=== PATIENT | female | born 1940 | race African-American/Black ===

== ENCOUNTER 2017-11-08 14:47 | Emergency (ER) | payer OTHER ==
[~2017-11-08] VITALS: Ht 170.2 cm; Wt 109.8 kg
--- NOTE | ~2017-11-08 | EKG ---
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 : 1940 Requested By: Maryann Jiménez Order Number: [id number] MD: Ruy Mckinney Measurements Intervals [place] Rate: 97 P: 43 [place]: 155 QRS: -19 QRSD: 86 T: 25 QT: 381 QTc: 484 Interpretive Statements Sinus tachycardia Atrial premature complexes Probable left atrial enlargement Borderline left axis deviation Compared to ECG 02/17/2011 19:47:12 Atrial premature complex(es) now present Electronically Signed On 11-09-2017 7:46:10 CDT by Ruy Mckinney [email or web address] <ELECTRONICALLY SIGNED> By: Ruy Mckinney MD, [facility] 11/09/17 0746 1616 1616 Ruy Mckinney MD, [facility] /EPI
[~2017-11-08 14:47] MED LIST: ATIVAN1 MG PO; BACTRIM DS TAB1 EACH PO; CIPRO250 M1 PO; CLARINEX-D 121 EACH PO; CLARITIN10 MG PO; HYDROCHLOROTH12.5 M2 PO; HYDROCODONE-AP1 EAC6 PO; LEVAQUIN 500 M500 MG PO; NAPROSYN500 MG PO; NORCO 5-325 TA1 EACH PO; PARAFON FORTE500 M2 PO; PROAIR HFA8.5 GM INH; ROBITUSSIN ALL118 ML PO; SYMBICORT160 MCG/4. INH; TEMAZEPAM30 MG PO; TRAMADOL 50 MG50 MG PO; TRAVATAN 0.004%5 ML OP; VICODIN 5-5001 EACH PO; XALATAN2.5 ML OPHTHALMIC
[2017-11-08] MEDS ORDERED: MOBIC15 MG PO (15:47)
[2017-11-08] MEDS ORDERED: ATIVAN1 MG PO (15:48)
[2017-11-08] MEDS ORDERED: FLEXERIL PO (15:49)
[2017-11-08 16:38] LABS: HEMATOCRIT 42.6 % (37.0-47.0); MCH 29.1 pg (26.0-34.0); MCHC 32.8 g/dL (28.0-37.0); MCV 88.6 fL (80.0-100.0); PLATELET COUNT 266 thou/uL (150-400); RBC 4.81 mil/uL (4.20-5.00); RDW 15.7 % (10.5-14.5); WBC 5.3 thou/uL (4.0-11.0)
[2017-11-08 16:54] LABS: ANION GAP 8 mmol/L (7-16); BUN 12 mg/dL (7-18); CALCIUM 9.5 mg/dL (8.5-10.1); CHLORIDE 103 mmol/L (98-107); CO2 29 mmol/L (21-32); CREATININE 1.4 mg/dL (0.6-1.0); GLUCOSE 107 mg/dL (74-106); POTASSIUM 3.8 mmol/L (3.5-5.1); SODIUM 140 mmol/L (136-145)
[2017-11-08 17:01] LABS: ALBUMIN 3.4 g/dL (3.4-5.0); SGOT 21 U/L (15-37); SGPT 20 U/L (30-65); TOTAL BILIRUBIN 0.4 mg/dL (<0.1-1.0); TOTAL PROTEIN 7.5 g/dL (6.4-8.2); TROPONIN-I < 0.04 ng/mL (<0.06)
[2017-11-08 17:04] LABS: ABSOLUTE NEUTROPHILS 2.7 thou/uL (1.4-8.2); ATYPICAL LYMPHS 1 %
[2017-11-08 17:05] LABS: ANISOCYTOSIS 1+; POLYCHROMASIA OCCASIONAL
[2017-11-08] MEDS ORDERED: AMOXICILLIN 50500 MG PO (17:37)
[2017-11-08] MEDS ORDERED: PROMETHAZINE/C118 ML PO (17:37)
[2017-11-08] MEDS ORDERED: HYDROCODONE-AP1 EAC6 PO (17:48)
[2017-11-08 18:00] VITALS: BP 109/61
== END 2017-11-08 18:01 | disposition home or self-care (01) ==
LOC: ER 14:47
PROVIDERS: Physician Assistant
DX: H66.93 Otitis media, unspecified, bilateral (principal); J40 Bronchitis, not specified as acute or chronic; R91.8 Other nonspecific abnormal finding of lung field; I10 Essential (primary) hypertension; Z88.1 Allergy status to other antibiotic agents

== ENCOUNTER 2017-12-21 20:52 | Inpatient (IN) | payer OTHER ==
[~2017-12-21] VITALS: Ht 170.2 cm; Wt 108.0 kg
--- NOTE | ~2017-12-21 | EKG ---
[place] [address] [employer] [facility] 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 : 1940 Requested By: Noris Woodall Order Number: [id number] MD: Ruy Mckinney Measurements Intervals [place] Rate: 96 P: 57 [place]: 163 QRS: -22 QRSD: 83 T: 33 QT: 352 QTc: 445 Interpretive Statements Sinus rhythm Atrial premature complex Probable left atrial enlargement Borderline left axis deviation Compared to ECG 11/08/2017 16:16:28 no significant change was found Electronically Signed On 12-22-2017 7:31:12 CDT by Ruy Mckinney [email or web address] <ELECTRONICALLY SIGNED> By: Ruy Mckinney MD, [facility] 12/22/1731 21 21 Ruy Mckinney MD, [facility] /EPI
--- NOTE | ~2017-12-21 | HC ---
[facility] [place] [address] CONSULTATION Name: DAYSI SANTIAGO Room #: 364-P [facility] IN M.R.#: [id number] Admission: 12/21/17 Attend Phys: Corby Knox MD Discharge: 12/23/17 Date of : 38 Report #: [id number] THIS REPORT FOR: //name// CC: Luci Xavier DATE OF SERVICE: 12/22/2017 HISTORY OF PRESENT ILLNESS: The patient is a 69-year-old -B[place]i female who was admitted complaining of left hand and arm pain and numbness. She was noted to have left hand paresthesias. She has history of hypertension and was exogenous obesity. Neurology evaluated her and there was a question as to whether she had some weakness of the left side of the face. Left upper extremity revealed a contracture of the left little finger, but Neurology otherwise, thought that the patient's sensation and reflexes appeared to be present. MRI was negative of the brain. CT of the head was negative. MRI has been done of the thoracic spine, which showed moderate central canal stenosis at T5-T6, T7-T8 as well as severe right neural foraminal narrowing at T5-T6. We are seeing the patient in rehabilitation medicine consultation. PAST MEDICAL HISTORY: Includes asthma, lung cancer, hypertension, glaucoma, DJD of the right hip. MEDICATIONS: Please see the full medication listing. ALLERGIES: CIPROFLOXACIN. HABITS: No history of tobacco or alcohol abuse. SOCIAL HISTORY: Lives in a house with her . There are 8 steps to get in. Premorbid cane ambulator. The patient is retired. is also retired and could be of some assistance if need be. REVIEW OF SYSTEMS: She notes the degenerative arthritis of her right hip. Notes some frustration with her left hand with decreased coordination. No chest pain, shortness of breath, abdominal discomfort, or lower extremity complaints otherwise. PHYSICAL EXAMINATION: GENERAL: A 77-year-old obese -Bahraini female, in no obvious distress. VITAL SIGNS: Last recorded temperature 98.6, pulse 104, respirations 17, and blood pressure 146/72. The patient is alert. HEENT: Appeared to be benign. NEUROLOGIC: Cranial nerves are grossly intact. Facies appeared to be symmetric. Functional range of motion of the right upper extremity without [facility] [address] [place] [address] CONSULTATION Name: DAYSI SANTIAGO Room #: 364-P [facility] IN .R.#: [id number] Admission: 12/21/17 Attend Phys: Corby Knox MD Discharge: 12/23/17 Date of : 39 Report #: [id number] obvious focal weakness. Facies appeared symmetric. Left upper extremity, she does have a contracture of the left fifth digit. She was able to extend the other digits, however. Intrinsic strength appeared to be probably a 4 to 4-/5. She did reasonably well with [id number]. Left upper extremity strength otherwise is a grade 4+/5. Lower extremities: There is no focal calf swelling. Strength is at least a grade 4-/5. Tone was intact. ASSESSMENT: A 77-year-old female with the following problems: 1. Left hand paresthesias, question of left facial weakness. MRI of the brain was negative. Neurology is involved. 2. Right hip degenerative arthritis. 3. Moderate thoracic T5-T6 and T6-T7 central canal stenosis as well as severe right neural foraminal narrowing at T5-T6. 4. Asthma. 5. Lung cancer. 6. Hypertension. 7. Glaucoma. 8. Exogenous obesity. PLAN: We will add physical therapy and occupational therapy to see how she does from a functional perspective. We would hope that she will be able to return directly back home as she further medically stabilizes, but we will need to see how she does from a functional perspective as well. We will be glad to follow along with you regarding rehab therapy needs. <ELECTRONICALLY SIGNED> By: Brent Burris MD 12/28/17 1528 1328 1709 Brent Burris MD /nt
--- NOTE | ~2017-12-21 | HC ---
[facility] [place] [address] CONSULTATION Name: DAYSI SANTIAGO Room #: 364-P ADM IN M.R.#: [id number] Admission: 12/21/17 Attend Phys: Corby Knox MD Discharge: Date of : 39 Report #: [id number] THIS REPORT FOR: //name// CC: Luci Xavier DATE OF SERVICE: 12/22/2017 HISTORY OF PRESENT ILLNESS: This is a 77-year-old female patient who was evaluated by me for the possibility of stroke. The patient gives a history that she has some baseline problem with the left upper extremity. It is mainly the contraction of her left little finger. It is going on for 40 years. She had more numbness in the left arm and there was some weakness. Onset of the symptoms is not clear, but it is going on for at least several days. Pain is also present in the left side of the chest and the left upper extremity. She has no involvement of the left side of the face. Symptoms are severe. She also has some associated spasms there. REVIEW OF SYSTEMS: Indicate that she was diagnosed with the lung cancer, but that has been under remission. She has a history of glaucoma and hypertension. She also had some asthma but does not have any current problem with it. She denies any prior history of stroke or any significant cardiac problem. She has no associated visual, ENT, respiratory, GI, , constitutional, dermatological, hematological, psychiatric, allergic, throat symptom associated with present symptomatology. PAST MEDICAL HISTORY: Positive for contracture of the left little finger. FAMILY HISTORY: Noncontributory, especially she does not have any early age stroke. SOCIAL HISTORY: She used to smoke but stopped smoking long time ago and she does not drink any alcohol on a regular basis. PHYSICAL EXAMINATION: NEUROLOGICAL: Indicate that she is alert, responsive, able to follow simple and complex command. Her speech, concentration, fund of knowledge and memory is at her baseline. Cranial nerve examination 2 through 12 indicate a question of weakness on the left side of the face. She does appear to be weak on the left upper extremity and she does appear to have a contracture in the left little finger but her sensation and reflexes appeared to be present. Tone is symmetrical. There is no cerebellar sign. I could not look at the fundus because she could not cooperate. GENERAL: She is morbidly obese individual who does not have any dysmorphic features of eyes, ears and face. [facility] [address] [place] [address] CONSULTATION Name: DAYSI SANTIAGO Room #: 364-P [facility] IN .R.#: [id number] Admission: 12/21/17 Attend Phys: Corby Knox MD Discharge: Date of : 39 Report #: [id number] HEENT: Her vision and hearing looks adequate. NECK: She has no thyroid mass. EXTREMITIES: Pulses are somewhat difficult to feel, but she has no edema, cyanosis or jaundice. CARDIAC: Examinations appear unremarkable. LUNGS: No respiratory difficulty was noticed and there is not much rhonchi on either side. VITAL SIGNS: Blood pressure is 130/72, respirations 18, pulse is 89 and temperature is 98.4. LABORATORY DATA: Her sodium is normal. Her white count is normal. RADIOLOGICAL DATA: Her CT scan of the head does not show much abnormality. IMPRESSION: 1. It is not clear if her symptoms in the left upper extremity is coming from lower motor neuron lesions and the upper motor neuron lesion. She may have a left facial palsy and if that is the case, that will make it upper motor neuron as more likely. She basically needs workup to evaluate that further starting with an MRI. She tells me there is no contraindication for MRI. We will go ahead and schedule an MRI in this patient and the further workup and management will depend upon that. RECOMMENDATIONS: 1. MRI of the brain. 2. MRI of the thoracic spine. 3. Echocardiogram. 4. Any systemic workup including cardiopulmonary especially because of her prior lung history, I will defer to you. Thank you very much for this referral and if you have any question, please feel free to contact me. By: [id number] Miguelito Graham MD /missy
--- NOTE | ~2017-12-21 | 2DMMODE ---
[facility] [address] [place] [address] 2 D/M-MODE ECHOCARDIOGRAM Name: DAYSI SANTIAGO Room #: 364-P ADM IN M.R.#: [id number] Admission: 12/21/17 Attend Phys: Corby Knox MD Discharge: Date of : 38 Date of Service: 12/23/17 1549 Report #: [id number] THIS REPORT FOR: //name// APPROVED REPORT Study performed: 12/23/2017 15:16:08 EXAM: Comprehensive 2D, Doppler, and color-flow Echocardiogram Patient Location: Echo lab Room #: 364 Status: routine BSA: 2.18 HR: 89 bpm BP: 146/114 mmHg Other Information Study Quality: Adequate Indications Hypertension/HDD 2D Dimensions RVDd: 28.57 mm LVEF(%): 62.20 (>50%) IVSd: 11.51 (7-11mm) LVOT Diam: 21.04 (18-24mm) LVDd: 42.02 mm PWd: 11.72 (7-11mm) Ascending Ao: 30.84 (22-36mm) LVDs: 28.07 (25-40mm) Aortic Root: 28.08 mm IVC: 16.00 mm Velasco's LVEF: 62.20 % Volumes Left Atrial Volume (Systole) Single Plane 4CH: 49.37 mL Single Plane 2CH: 41.39 mL LA ESV Index: 23.00 mL/m2 Aortic Valve AoV Peak Matt.: 1.82 m/s AO Peak Gr.: 13.21 mmHg LVOT Max P.10 mmHg LVOT Max V: 1.24 m/s MARS Vmax: 2.36 cm2 Mitral Valve E/A Ratio: 0.8 MV Decel. Time: 238.49 ms MV E Max Matt.: 0.88 m/s [facility] [place] [address] 2 D/M-MODE ECHOCARDIOGRAM Name: DAYSI SANTIAGO Room #: 364-P [facility] IN ..#: [id number] Admission: 12/21/17 Attend Phys: Corby Knox MD Discharge: Date of : 38 Date of Service: 12/23/17 1549 Report #: [id number] A Matt.: 1.09 m/s MV PHT: 69.16 ms IVRT: 106.11 ms Pulmonary Valve PV Peak Matt.: 1.20 m/s PV Peak Gr.: 5.74 mmHg Pulmonary Vein P Vein S: 0.43 m/s P Vein A: 0.24 m/s P Vein D: 0.32 m/s P Vein A Dur.: 129.2 msec P Vein S/D Ratio: 1.34 Left Ventricle The left ventricle is normal size. There is normal LV segmental wall motion. Mild concentric left ventricular hypertrophy. Left ventricular systolic function is normal. The left ventricular ejection fraction is within the normal range. LVEF is 60-65%. Grade I - abnormal relaxation pattern. Right Ventricle The right ventricle is normal size. The right ventricular systolic function is normal. Atria The left atrium size is normal. The right atrium size is normal. Aortic Valve The aortic valve is normal in structure. Aortic valve is calcified. No aortic regurgitation is present. There is no aortic valvular stenosis. Mitral Valve The mitral valve is normal in structure. Trace to mild mitral regurgitation. No evidence of mitral valve stenosis. Tricuspid Valve The tricuspid valve is normal in structure. There is no tricuspid valve regurgitation noted. Pulmonic Valve The pulmonary valve is normal in structure. There is no pulmonic valvular regurgitation. Great Vessels The aortic root is normal in size. IVC is normal in size and [facility] [address] [place] [address] 2 D/M-MODE ECHOCARDIOGRAM Name: DAYSI SANTIAGO Room #: 364-P [facility] IN [facility]#: [id number] Admission: 12/21/17 Attend Phys: Corby Knox MD Discharge: Date of : 38 Date of Service: 12/23/17 1549 Report #: [id number] collapses with >50% inspiration Pericardium There is no pericardial effusion. <Conclusion> The left ventricle is normal size. Mild concentric left ventricular hypertrophy. LVEF is 60-65%. Grade I - abnormal relaxation pattern. The right ventricle is normal size. The left atrium size is normal. The aortic valve is normal in structure. Aortic valve is calcified. There is no aortic valvular stenosis. Trace to mild mitral regurgitation. There is no tricuspid valve regurgitation noted. The aortic root is normal in size. There is no pericardial effusion. <ELECTRONICALLY SIGNED> By: Tanvir Garcia MD, FACC 12/23/17 1549 1549 1549 Tanvir Garcia MD, FACC /INF
[~2017-12-21 20:52] MED LIST changes: +AMOXICILLIN 50500 MG PO; +FLEXERIL PO; +MOBIC15 MG PO; +PROMETHAZINE/C118 ML PO
[2017-12-21 21:07] VITALS: BP 135/86
[2017-12-21] MEDS ORDERED: ULTRAM 50MG TAB50 MG PO (21:15)
[2017-12-21 21:17] LABS: ABSOLUTE NEUTROPHILS 4.3 thou/uL (1.4-8.2); BASOPHILS 0.5 % (0.0-2.0); HEMATOCRIT 41.8 % (37.0-47.0); HEMOGLOBIN 13.7 gm/dL (12.0-15.0); LYMPHOCYTES 26.7 % (24.0-44.0); MCHC 32.7 g/dL (28.0-37.0); MCV 88.6 fL (80.0-100.0); MONOCYTES 11.4 % (1.0-8.0); PLATELET COUNT 300 thou/uL (150-400); POLYS 58.4 % (36.0-66.0); RBC 4.72 mil/uL (4.20-5.00); RDW 15.1 % (10.5-14.5); WBC 7.4 thou/uL (4.0-11.0)
[2017-12-21 21:25] LABS: CALCIUM 9.3 mg/dL (8.5-10.1); CREATININE 1.5 mg/dL (0.6-1.0); POTASSIUM 3.9 mmol/L (3.5-5.1)
[2017-12-21] MEDS ORDERED: XALATAN2.5 ML OPHTHALMIC (22:25)
[2017-12-21 22:41] VITALS: BP 137/85
[2017-12-21 22:43] VITALS: BP 137/85
[2017-12-21 22:50] VITALS: BP 128/63
[2017-12-22 05:43] VITALS: BP 117/51
[2017-12-22 05:50] LABS: CALCIUM 8.6 mg/dL (8.5-10.1); CREATININE 1.2 mg/dL (0.6-1.0); POTASSIUM 3.8 mmol/L (3.5-5.1)
[2017-12-22 06:27] LABS: TSH 0.823 uIU/mL (0.358-3.740)
[2017-12-22 07:29] LABS: URINE BILIRUBIN NEGATIVE (Negative); URINE BLOOD NEGATIVE (Negative); URINE CLARITY CLEAR; URINE COLOR YELLOW; URINE GLUCOSE-RANDOM* NEGATIVE (Negative); URINE KETONES NEGATIVE (Negative); URINE LEUKOCYTES-REFLEX NEGATIVE (Negative); URINE NITRITE-REFLEX NEGATIVE (Negative); URINE PROTEIN (DIPSTICK) NEGATIVE (Negative); URINE SPECIFIC GRAVITY >= 1.030 (1.005-1.035); URINE UROBILINOGEN 0.2 E.U./dl (0.2-1.0)
[2017-12-22 07:53] VITALS: BP 135/72
[2017-12-22 11:33] VITALS: BP 146/72
[2017-12-22 15:07] VITALS: BP 184/85
[2017-12-22 20:11] VITALS: BP 120/68
[2017-12-23 04:07] VITALS: BP 135/63
[2017-12-23 05:46] LABS: HEMATOCRIT 37.6 % (37.0-47.0); HEMOGLOBIN 12.4 gm/dL (12.0-15.0); MCH 29.2 pg (26.0-34.0); MCV 88.5 fL (80.0-100.0); RBC 4.25 mil/uL (4.20-5.00); RDW 14.9 % (10.5-14.5); WBC 5.7 thou/uL (4.0-11.0)
[2017-12-23 05:55] LABS: CALCIUM 8.8 mg/dL (8.5-10.1); CREATININE 1.1 mg/dL (0.6-1.0)
[2017-12-23 07:52] VITALS: BP 140/65
[2017-12-23 11:43] VITALS: BP 146/114
[2017-12-23] MEDS ORDERED: ASPIR 8181 MG PO (17:19)
[2017-12-23 17:29] VITALS: BP 146/114
== END 2017-12-23 19:00 | disposition home or self-care (01) | DRG 564 ==
LOC: ER 20:52 → 3W 22:13 → EROBS 22:13 → 3W 22:44 → ENTRNSPT 12-23 18:28 → 3W 12-23 19:00
PROVIDERS: Emergency Medicine; Hospitalist; Nurse Practitioner Family
DX: M24.542 Contracture, left hand (principal); N17.0 Acute kidney failure with tubular necrosis; J45.909 Unspecified asthma, uncomplicated; H40.9 Unspecified glaucoma; I10 Essential (primary) hypertension; M16.11 Unilateral primary osteoarthritis, right hip; M48.04 Spinal stenosis, thoracic region; E66.01 Morbid (severe) obesity due to excess calories; M62.84 Sarcopenia; E55.9 Vitamin D deficiency, unspecified; K59.00 Constipation, unspecified; Z85.118 Personal history of other malignant neoplasm of bronchus and lung; Z88.1 Allergy status to other antibiotic agents; Z68.37 Body mass index [BMI] 37.0-37.9, adult; Z79.82 Long term (current) use of aspirin; Z79.899 Other long term (current) drug therapy
CPT/HCPCS: 10879

== ENCOUNTER 2018-09-03 13:59 | Emergency (ER) | payer OTHER ==
[~2018-09-03] VITALS: Ht 165.1 cm; Wt 108.4 kg
[~2018-09-03 13:59] MED LIST changes: +ASPIR 8181 MG PO; +ULTRAM 50MG TAB50 MG PO
[2018-09-03] MEDS ORDERED: ZANAFLEX4 MG PO (14:16)
[2018-09-03 16:01] LABS: ABSOLUTE NEUTROPHILS 4.2 thou/uL (1.4-8.2); BASOPHILS 0.5 % (0.0-2.0); HEMATOCRIT 38.5 % (37.0-47.0); HEMOGLOBIN 12.4 gm/dL (12.0-15.0); LYMPHOCYTES 24.4 % (24.0-44.0); MCH 28.5 pg (26.0-34.0); MCHC 32.2 g/dL (28.0-37.0); MCV 88.4 fL (80.0-100.0); MONOCYTES 8.9 % (1.0-8.0); PLATELET COUNT 317 thou/uL (150-400); POLYS 59.2 % (36.0-66.0); RBC 4.35 mil/uL (4.20-5.00); WBC 7.1 thou/uL (4.0-11.0)
[2018-09-03 16:10] LABS: ANION GAP 9 mmol/L (7-16); BUN 11 mg/dL (7-18); CALCIUM 9.4 mg/dL (8.5-10.1); CHLORIDE 103 mmol/L (98-107); CO2 29 mmol/L (21-32); CREATININE 0.9 mg/dL (0.6-1.0); GLUCOSE 92 mg/dL (74-106); POTASSIUM 4.1 mmol/L (3.5-5.1); SODIUM 141 mmol/L (136-145)
[2018-09-03 16:18] LABS: TROPONIN-I <0.06 ng/mL (<0.06)
[2018-09-03] MEDS ORDERED: NORCO 5-325 TA1 EACH PO (16:25)
[2018-09-03] MEDS ORDERED: MOBIC7.5 MG PO (16:25)
[2018-09-03 16:36] VITALS: BP 149/57
--- NOTE | 2018-09-04 11:48 | EKG ---
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: rosa maria : 1940 Requested By: Pati Ambrosio Order Number: [id number] MD: Ruy Mckinney Measurements Intervals [place] Rate: 76 P: 47 [place]: 185 QRS: -1 QRSD: 92 T: 22 QT: 392 QTc: 441 Interpretive Statements Sinus rhythm Atrial premature complex Compared to ECG 12/21/2017 21:22:25 No significant change was found Electronically Signed On 09-04-2018 11:48:40 CDT by Ruy Mckinney [email or web address] ��������������������������������������������� <ELECTRONICALLY SIGNED> ���������������������������������������� By: Ruy Mckinney MD, [facility] ��������������������������������������������� 09/04/18 1148 1522 21 Ruy Mckinney MD, FACC /EPI
== END 2018-09-03 16:47 | disposition home or self-care (01) ==
LOC: ER 13:59
PROVIDERS: Nurse Practitioner Family
DX: R07.81 Pleurodynia (principal); J45.909 Unspecified asthma, uncomplicated; I10 Essential (primary) hypertension; M19.90 Unspecified osteoarthritis, unspecified site; Z87.440 Personal history of urinary (tract) infections; Z88.1 Allergy status to other antibiotic agents; Z85.118 Personal history of other malignant neoplasm of bronchus and lung

== ENCOUNTER 2019-06-24 13:05 | Emergency (ER) | payer OTHER ==
[~2019-06-24] VITALS: Ht 165.1 cm; Wt 106.1 kg
[~2019-06-24 13:05] MED LIST changes: +MOBIC7.5 MG PO; +ZANAFLEX4 MG PO
[2019-06-24 13:12] VITALS: BP 161/72
[2019-06-24] MEDS ORDERED: ZPAK PO (15:26)
[2019-06-24] MEDS ORDERED: PREDNISONE 20 M20 MG PO (15:26)
[2019-06-24] MEDS ORDERED: PROMETH-CODEIN 65 ML PO (15:26)
== END 2019-06-24 20:42 | disposition home or self-care (01) ==
LOC: ER 13:05
DX: J45.909 Unspecified asthma, uncomplicated (principal); H66.91 Otitis media, unspecified, right ear; M19.90 Unspecified osteoarthritis, unspecified site; Z85.118 Personal history of other malignant neoplasm of bronchus and lung; Z87.440 Personal history of urinary (tract) infections; Z88.1 Allergy status to other antibiotic agents

== ENCOUNTER 2020-09-13 12:48 | Emergency (ER) | payer OTHER ==
[~2020-09-13] VITALS: Ht 165.1 cm; Wt 110.2 kg
[~2020-09-13 12:48] MED LIST changes: +PREDNISONE 20 M20 MG PO; +PROMETH-CODEIN 65 ML PO; +ZPAK PO
[2020-09-13] MEDS ORDERED: GABAPENTIN 100100 MG PO (12:54)
[2020-09-13 13:27] LABS: ABSOLUTE NEUTROPHILS 4.5 thou/uL (1.4-8.2); BASOPHILS 0.7 % (0.0-2.0); HEMATOCRIT 37.4 % (37.0-47.0); LYMPHOCYTES 22.5 % (24.0-44.0); MCHC 32.2 g/dL (28.0-37.0); MONOCYTES 10.8 % (1.0-8.0); PLATELET COUNT 379 thou/uL (150-400); RBC 4.29 mil/uL (4.20-5.00); RDW 17.2 % (10.5-14.5); WBC 7.1 thou/uL (4.0-11.0)
[2020-09-13 15:43] LABS: ALBUMIN 3.3 g/dL (3.4-5.0); ANION GAP 7 mmol/L (7-16); BUN 14 mg/dL (7-18); CALCIUM 9.3 mg/dL (8.5-10.1); CHLORIDE 107 mmol/L (98-107); CO2 28 mmol/L (21-32); GLUCOSE 92 mg/dL (74-106); POTASSIUM 4.5 mmol/L (3.5-5.1); SGOT 19 U/L (15-37); SGPT 18 U/L (14-59); SODIUM 142 mmol/L (136-145); TOTAL BILIRUBIN 0.3 mg/dL (0.2-1.0); TOTAL PROTEIN 7.2 g/dL (6.4-8.2); TROPONIN-I <0.06 ng/mL (<0.06)
[2020-09-13] MEDS ORDERED: ULTRAM 50MG TAB50 MG PO (16:35)
[2020-09-13 16:41] VITALS: BP 180/81
--- NOTE | 2020-09-15 11:03 | EKG ---
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
== END 2020-09-13 16:50 | disposition home or self-care (01) ==
LOC: ER 12:48
PROVIDERS: Nurse Practitioner
DX: R22.43 Localized swelling, mass and lump, lower limb, bilateral (principal); M25.571 Pain in right ankle and joints of right foot; M25.572 Pain in left ankle and joints of left foot; M79.671 Pain in right foot; M79.672 Pain in left foot; J45.909 Unspecified asthma, uncomplicated; I10 Essential (primary) hypertension; Z79.82 Long term (current) use of aspirin; Z79.899 Other long term (current) drug therapy; Z88.1 Allergy status to other antibiotic agents

== ENCOUNTER 2021-01-21 14:40 | Inpatient (IN) | payer OTHER ==
[~2021-01-21] VITALS: Ht 165.1 cm; Wt 105.2 kg
--- NOTE | ~2021-01-21 | EMS ---
[address] [address] EMS Patient Care Report Name: DAYSI SANTIAGO Room #: 462-P [facility] IN M.R.#: [id number] Admission: 01/21/21 Attend Phys: Chay Vizcaino MD Discharge: 01/22/21 Date of : 39 Report #: [id number] THIS REPORT FOR: //name// Report Transmitted: 01/23/2021 11:18 EMS Care Summary [place], [place]/[facility] Incident [id number] @ 01/21/2021 13:30 Incident Location [address] [place] [address] Patient DAYSI SANTIAGO Female, 80 Years 1940 Patient Address [address] [place] [address] Patient History Hypertension (HTN),Colon Cancer,Rheumatoid Arthritis,Glaucoma, Patient Allergies No known allergies, Patient Medications Cyclobenzaprine, Hydrochlorothiazide (Hctz), Chief Complaint NEAR SYNCOPE Disposition Transported No Lights/[place] Dispatch Reason Sick Person Transported To [facility] Narrative DISPATCHED NON EMERGENCY ON A SICK. 80 Y/O FEMALE SITTING IN CHAIR IN KITCHEN APPEARING IN NO IMMEDIATE DISTRESS. GCS 15 AND A/OX4. STATES THAT AROUND 1 PM EVERYTHING STARTED TO GET DARK AND SHE FELT LIKE SHE WOULD PASS OUT AND BROKE INTO COLD SWEATS, ALL OVER NUMBNESS AND MUSCLE CRAMPS WITH PAIN AT 8. DENIES [facility] [address] [place] [address] EMS Patient Care Report Name: DAYSI SANTIAGO Room #: 462-P [facility] IN M.R.#: [id number] Admission: 01/21/21 Attend Phys: Chay Vizcaino MD Discharge: 01/22/21 Date of : 39 Report #: [id number] ANY LOSS OF CONSCIOUSNESS, CHEST PAIN, SOA, NAUSEA, VOMITING. STATES THAT THIS ALL HAPPENED SOON AFTER SHE TOOK HER BLOOD PRESSURE MEDICATION. STATES THAT SHE FELT LIKE SHE COULDN'T CATCH HER BREATH EARLIER BUT DENIES ANY DIFFICULTY BREATHING NOW. PT IS UNSURE IF SHE WANTS TO GO TO THE HOSPITAL BUT CONSENTS FOR V/S'S. DENIES ANY PREVIOUS SIMILIAR EPISODES. V/S'S OBTAINED. EMS ADVISES PT THAT SHE SHOULD BE FURTHER EVALUATED AT HE HOSPITAL BY A DOCTOR. ADVISED OF RISKS. PT CONSENTS FOR FURTHER TX AND TRANSPORTATION. MOVED WITHOUT INCIDENT TO AMBULANCE VIA STAIRCHAIR AND STRETCHER. V/S'S OBTAINED. IV ESTABLISHED. TRANSPORTED TO [facility]. REASSESSED ENROUTE. V/S'S OBTAINED. REMAINS GCS 15 AND A/OX4. CRAMPING AND NUMBNESS REMAIN. REPORT CALLED TO HOSPITAL. MOVED WITHOUT INCIDENT TO ER HOSPITAL BED. PT CARE TRANSFERRED TO ED RN. Initial Vitals @13:45P: 90,R: 16,BP: 100/68,Pain: 8/10,GCS: 15,Glucose: 121,SpO2: 98,Revised Trauma: 12, @13:57P: 90,R: 16,BP: 100/74,Pain: 8/10,GCS: 15,Temp: 97.5F,CO: 1,SpO2: 97,Revised Trauma: 12, @14:23P: 86,R: 16,BP: 111/65,Pain: 8/10,GCS: 15,SpO2: 96,Revised Trauma: 12, Assessments @13:43MENTAL:Person Oriented,Time Oriented,Event Oriented,Place Oriented,SKIN:HEENT:Head/Face: No Abnormalities,Neck/Airway: No Abnormalities,LUNG SOUNDS:General: No Abnormalities,ABDOMEN:General: No Abnormalities,PELVIS//GI:EXTREMITIES:Right Leg: Abnormal Sensation,Capillary Refill: Right Upper: < 2 Sec,Capillary Refill: Left Lower: < 2 Sec,Capillary Refill: Right Lower: < 2 Sec,Capillary Refill: Left Upper: < 2 Sec,Left Leg: Other,Left Leg: Abnormal Sensation,Right Arm: Other,Left Arm: Abnormal Sensation,Right Arm: Abnormal Sensation,Left Arm: Other,PULSE:Radial: 2+ Normal,NEURO:@14:30MENTAL:Time Oriented,Place Oriented,Person Oriented,Event Oriented,SKIN:HEENT:Head/Face: No Abnormalities,Neck/Airway: No Abnormalities,LUNG SOUNDS:ABDOMEN:PELVIS//GI:EXTREMITIES:Right Leg: Abnormal Sensation,Capillary Refill: Left Upper: < 2 Sec,Capillary Refill: Left Lower: < 2 Sec,Capillary Refill: Right Lower: < 2 Sec,Capillary Refill: Right Upper: < 2 Sec,Left Leg: Other,Left Arm: Abnormal Sensation,Left Leg: Abnormal Sensation,Right Arm: Other,Right Arm: Abnormal Sensation,Left Arm: Other,PULSE:Radial: 2+ Normal,NEURO: Impression Syncope / Fainting Procedures @13:43ALS AssessmentResponse: UnchangedSucceeded@13:563-Lead ECGResponse: Unchanged@14:22Saline Lock 10cc (20 ga) Site: Antecubital-LeftResponse: UnchangedSucceeded@14:00StairchairResponse: Unchanged@14:05StretcherResponse: Unchanged [facility] [address] [place] [address] EMS Patient Care Report Name: DAYSI SANTIAGO Room #: 462-P [facility] IN M.R.#: [id number] Admission: 01/21/21 Attend Phys: Chay Vizcaino MD Discharge: 01/22/21 Date of : 38 Report #: [id number] Timeline 13:28,Call Received 13:28,Dispatch Notified 13:30,Dispatched 13:31,En Route 13:41,On Scene 13:43,At Patient 13:43,ALS Assessment,Response: UnchangedSucceeded, 13:45,BP: 100/68 M,PULSE: 90,RR: 16 R,SPO2: 98 Ox,ETCO2: ,B,PAIN: 8,GCS: 15, 13:56,3-Lead ECG,Response: Unchanged 13:57,BP: 100/74 M,PULSE: 90,RR: 16 R,SPO2: 97 Ox,ETCO2: ,BG: ,PAIN: 8,GCS: 15, 14:00,Stairchair,Response: Unchanged 14:05,Stretcher,Response: Unchanged 14:22,Saline Lock 10cc 20 ga Site: Antecubital-Left,Response: UnchangedSucceeded, 14:23,BP: 111/65 M,PULSE: 86,RR: 16 R,SPO2: 96 Ox,ETCO2: ,BG: ,PAIN: 8,GCS: 15, 14:26,Depart Scene 14:36,At Destination 15:01,Call Closed Disclaimer v1.1 Copyright 2020 [employer] This EMS Care Summary contains data elements from the applicable legal record (which may be displayed differently). It is designed to provide pertinent information for the following purposes: continuity of care, clinical quality, and state data reporting. The complete legal record is available to ED staff and administrators of the receiving hospital in ES's Patient Tracker. All data is provided "as is."
--- NOTE | ~2021-01-21 | EMS ---
[address] [address] EMS Patient Care Report Name: DAYSI SANTIAGO Room #: REG ADRIANNE [place]#: [id number] Admission: 01/21/21 Attend Phys: Discharge: Date of : 38 Report #: [id number] THIS REPORT FOR: //name// Report Transmitted: 01/21/2021 15:38 EMS Care Summary [place], [place]/[facility] Incident [id number] @ 01/21/2021 13:30 Incident Location [address] [place] [address] Patient DAYSI SANTIAGO Female, 80 Years 1940 Patient Address [address] [place] [address] Patient History Hypertension (HTN),Colon Cancer,Rheumatoid Arthritis,Glaucoma, Patient Allergies No known allergies, Patient Medications Cyclobenzaprine, Hydrochlorothiazide (Hctz), Chief Complaint NEAR SYNCOPE Disposition Transported No Lights/[place] Dispatch Reason Sick Person Transported To [facility] Narrative DISPATCHED NON EMERGENCY ON A SICK. 80 Y/O FEMALE SITTING IN CHAIR IN KITCHEN APPEARING IN NO IMMEDIATE DISTRESS. GCS 15 AND A/OX4. STATES THAT AROUND 1 PM EVERYTHING STARTED TO GET DARK AND SHE FELT LIKE SHE WOULD PASS OUT AND BROKE INTO COLD SWEATS, ALL OVER NUMBNESS AND MUSCLE CRAMPS WITH PAIN AT 8. DENIES [place] [id number] EMS Patient Care Report Name: DAYSI SANTIAGO Room #: REG [facility].#: [id number] Admission: 01/21/21 Attend Phys: Discharge: Date of : 39 Report #: [id number] ANY LOSS OF CONSCIOUSNESS, CHEST PAIN, SOA, NAUSEA, VOMITING. STATES THAT THIS ALL HAPPENED SOON AFTER SHE TOOK HER BLOOD PRESSURE MEDICATION. STATES THAT SHE FELT LIKE SHE COULDN'T CATCH HER BREATH EARLIER BUT DENIES ANY DIFFICULTY BREATHING NOW. PT IS UNSURE IF SHE WANTS TO GO TO THE HOSPITAL BUT CONSENTS FOR V/S'S. DENIES ANY PREVIOUS SIMILIAR EPISODES. V/S'S OBTAINED. EMS ADVISES PT THAT SHE SHOULD BE FURTHER EVALUATED AT HE HOSPITAL BY A DOCTOR. ADVISED OF RISKS. PT CONSENTS FOR FURTHER TX AND TRANSPORTATION. MOVED WITHOUT INCIDENT TO AMBULANCE VIA STAIRCHAIR AND STRETCHER. V/S'S OBTAINED. IV ESTABLISHED. TRANSPORTED TO [facility]. REASSESSED ENROUTE. V/S'S OBTAINED. REMAINS GCS 15 AND A/OX4. CRAMPING AND NUMBNESS REMAIN. REPORT CALLED TO HOSPITAL. MOVED WITHOUT INCIDENT TO ER HOSPITAL BED. PT CARE TRANSFERRED TO ED RN. Initial Vitals @13:45P: 90,R: 16,BP: 100/68,Pain: 8/10,GCS: 15,Glucose: 121,SpO2: 98,Revised Trauma: 12, @13:57P: 90,R: 16,BP: 100/74,Pain: 8/10,GCS: 15,Temp: 97.5F,CO: 1,SpO2: 97,Revised Trauma: 12, @14:23P: 86,R: 16,BP: 111/65,Pain: 8/10,GCS: 15,SpO2: 96,Revised Trauma: 12, Assessments @13:43MENTAL:Person Oriented,Time Oriented,Event Oriented,Place Oriented,SKIN:HEENT:Head/Face: No Abnormalities,Neck/Airway: No Abnormalities,LUNG SOUNDS:General: No Abnormalities,ABDOMEN:General: No Abnormalities,PELVIS//GI:EXTREMITIES:Left Arm: Other,Right Arm: Abnormal Sensation,Left Arm: Abnormal Sensation,Right Arm: Other,Left Leg: Abnormal Sensation,Left Leg: Other,Capillary Refill: Left Upper: < 2 Sec,Capillary Refill: Right Lower: < 2 Sec,Capillary Refill: Left Lower: < 2 Sec,Capillary Refill: Right Upper: < 2 Sec,Right Leg: Abnormal Sensation,PULSE:Radial: 2+ Normal,NEURO:@14:30MENTAL:Event Oriented,Person Oriented,Place Oriented,Time Oriented,SKIN:HEENT:Head/Face: No Abnormalities,Neck/Airway: No Abnormalities,LUNG SOUNDS:ABDOMEN:PELVIS//GI:EXTREMITIES:Left Arm: Other,Right Arm: Abnormal Sensation,Right Arm: Other,Left Leg: Abnormal Sensation,Left Arm: Abnormal Sensation,Left Leg: Other,Capillary Refill: Right Upper: < 2 Sec,Capillary Refill: Right Lower: < 2 Sec,Capillary Refill: Left Lower: < 2 Sec,Capillary Refill: Left Upper: < 2 Sec,Right Leg: Abnormal Sensation,PULSE:Radial: 2+ Normal,NEURO: Impression Syncope / Fainting Procedures @13:43ALS AssessmentResponse: UnchangedSucceeded@13:563-Lead ECGResponse: Unchanged@14:22Saline Lock 10cc (20 ga) Site: Antecubital-LeftResponse: UnchangedSucceeded@14:00StairchairResponse: Unchanged@14:05StretcherResponse: Unchanged [facility] [address] [place] [address] EMS Patient Care Report Name: DAYSI SANTIAGO Room #: REG ADRIANNE [place]#: [id number] Admission: 01/21/21 Attend Phys: Discharge: Date of : 39 Report #: [id number] Timeline 13:28,Call Received 13:28,Dispatch Notified 13:30,Dispatched 13:31,En Route 13:41,On Scene 13:43,At Patient 13:43,ALS Assessment,Response: UnchangedSucceeded, 13:45,BP: 100/68 M,PULSE: 90,RR: 16 R,SPO2: 98 Ox,ETCO2: ,B,PAIN: 8,GCS: 15, 13:56,3-Lead ECG,Response: Unchanged 13:57,BP: 100/74 M,PULSE: 90,RR: 16 R,SPO2: 97 Ox,ETCO2: ,BG: ,PAIN: 8,GCS: 15, 14:00,Stairchair,Response: Unchanged 14:05,Stretcher,Response: Unchanged 14:22,Saline Lock 10cc 20 ga Site: Antecubital-Left,Response: UnchangedSucceeded, 14:23,BP: 111/65 M,PULSE: 86,RR: 16 R,SPO2: 96 Ox,ETCO2: ,BG: ,PAIN: 8,GCS: 15, 14:26,Depart Scene 14:36,At Destination 15:01,Call Closed Disclaimer v1.1 Copyright 2020 [employer] This EMS Care Summary contains data elements from the applicable legal record (which may be displayed differently). It is designed to provide pertinent information for the following purposes: continuity of care, clinical quality, and state data reporting. The complete legal record is available to ED staff and administrators of the receiving hospital in [facility]'s Patient Tracker. All data is provided "as is."
[~2021-01-21 14:40] MED LIST changes: +GABAPENTIN 100100 MG PO
[2021-01-21 14:42] VITALS: BP 123/67
[2021-01-21 15:15] LABS: ABSOLUTE NEUTROPHILS 5.4 thou/uL (1.4-8.2); BASOPHILS 0.6 % (0.0-2.0); HEMATOCRIT 37.6 % (37.0-47.0); HEMOGLOBIN 12.3 gm/dL (12.0-15.0); LYMPHOCYTES 17.3 % (24.0-44.0); MCH 28.3 pg (26.0-34.0); MCHC 32.6 g/dL (28.0-37.0); MCV 86.7 fL (80.0-100.0); MONOCYTES 11.2 % (1.0-8.0); PLATELET COUNT 338 thou/uL (150-400); POLYS 68.9 % (36.0-66.0); RBC 4.33 mil/uL (4.20-5.00); RDW 16.1 % (10.5-14.5); WBC 7.8 thou/uL (4.0-11.0)
--- NOTE | 2021-01-21 15:22 | NUR ---
per Dr Tran. Do not wait for creatine. proceed to CTA. pt has no hx of renal disease. Also requesting to include aortic arch on exams. This info delivered to aeronautical engineering technologist.
[2021-01-21 15:25] LABS: ANION GAP 9 mmol/L (7-16); BUN 17 mg/dL (7-18); CALCIUM 8.8 mg/dL (8.5-10.1); CHLORIDE 104 mmol/L (98-107); CO2 26 mmol/L (21-32); CREATININE 1.4 mg/dL (0.6-1.0); GLUCOSE 103 mg/dL (74-106); POTASSIUM 4.1 mmol/L (3.5-5.1); SODIUM 139 mmol/L (136-145)
[2021-01-21 15:29] LABS: APTT 24.2 Seconds (24.5-32.8); INR 0.96; PROTIME 10.5 Seconds (10.5-12.1)
[2021-01-21 15:35] LABS: ALBUMIN 3.5 g/dL (3.4-5.0); LIPASE 83 U/L (73-393); SGOT 21 U/L (15-37); SGPT 22 U/L (30-65); TOTAL BILIRUBIN 0.4 mg/dL (0.2-1.0); TOTAL PROTEIN 7.7 g/dL (6.4-8.2); TROPONIN-I <0.06 ng/mL (<0.06)
[2021-01-21 16:57] LABS: URINE BILIRUBIN NEGATIVE (Negative); URINE BLOOD NEGATIVE (Negative); URINE CLARITY CLEAR; URINE COLOR YELLOW; URINE GLUCOSE-RANDOM* NEGATIVE (Negative); URINE KETONES NEGATIVE (Negative); URINE LEUKOCYTES-REFLEX NEGATIVE (Negative); URINE NITRITE-REFLEX NEGATIVE (Negative); URINE PROTEIN (DIPSTICK) NEGATIVE (Negative); URINE SPECIFIC GRAVITY <= 1.005 (1.005-1.035); URINE UROBILINOGEN 0.2 E.U./dl (0.2-1.0)
[2021-01-21 17:24] VITALS: BP 97/64
[2021-01-21 17:42] VITALS: BP 107/54
[2021-01-21 17:43] VITALS: BP 107/54
[2021-01-21 18:55] VITALS: BP 133/64
[2021-01-22 05:50] LABS: ABSOLUTE NEUTROPHILS 4.2 thou/uL (1.4-8.2); BASOPHILS 0.4 % (0.0-2.0); EOSINOPHILS 1.5 % (0.0-3.0); HEMOGLOBIN 10.9 gm/dL (12.0-15.0); LYMPHOCYTES 24.4 % (24.0-44.0); MCH 27.9 pg (26.0-34.0); PLATELET COUNT 312 thou/uL (150-400); POLYS 63.7 % (36.0-66.0); RDW 16.3 % (10.5-14.5); WBC 6.6 thou/uL (4.0-11.0)
--- NOTE | 2021-01-22 05:57 | NUR ---
today this pt has been asleep for most of the night while tolerating her fluids well. Her orthostatic VS were normal and she has otherwise been using the BSC for voiding. She is otherwise awaiting for the next plan.
[2021-01-22 05:59] LABS: CALCIUM 8.5 mg/dL (8.5-10.1); CREATININE 1.2 mg/dL (0.6-1.0); MAGNESIUM 2.1 mg/dL (1.8-2.4)
--- NOTE | 2021-01-22 07:47 | EKG ---
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 : 1940 Requested By: Tremayne Tran Order Number: [id number] MD: Lexx Pagan Measurements Intervals [place] Rate: 85 P: 78 MS: 183 QRS: -15 QRSD: 100 T: 17 QT: 394 QTc: 469 Interpretive Statements Sinus rhythm Borderline left axis deviation Artifact in lead(s) I,III,aVR,aVL,aVF,V1,V2 Compared to ECG 09/13/2020 13:49:28 Atrial premature complex(es) no longer present ST (T wave) deviation no longer present Electronically Signed On 01-22-2021 7:47:25 CDT by Lexx Pagan [email or web address] <ELECTRONICALLY SIGNED> By: Lexx Pagan MD, FACC 01/22/21 0747 1454 1454 Lexx Pagan MD, FAC /EPI
[2021-01-22 08:45] VITALS: BP 137/71
--- NOTE | 2021-01-22 10:53 | NUR ---
Pt A/O x 4, up with standby assist sitting in chair. X-ray of R hip shows no metal objects, okay for pt to have head MRI. MRI checklist complete, attempting to get MRI complete before pt D/C home.
--- NOTE | 2021-01-22 12:22 | HC ---
[facility] [place] [address] CONSULTATION Name: DAYSI SANTIAGO Room #: 462-P ADM IN M.R.#: [id number] Admission: 01/21/21 Attend Phys: Chay Vizcaino MD Discharge: Date of : 39 Report #: [id number] THIS REPORT FOR: cc: Luci Lagos MD, Karla L. MD Khosla, Parveen K. MD ~ DATE OF SERVICE: 01/21/2021 HISTORY OF PRESENT ILLNESS: This is an 80-year-old female patient who is a poor historian. Symptoms are unstructured and she jumps from one symptom to another. It becomes very difficult to evaluate her. She says that she is on antihypertensive, but she does not take it regularly. She took antihypertensive, she had some cold sweating and some unusual feeling which involved both her shoulders and somewhere in the neck area and maybe some in the thoracic area. She feels she is weak on the left side, how long it is going on is not clear. She appeared to have Dupuytren's contracture on both hands and keeps showing that to me, but when I ask her, then she says it is going on for some time. She wants those to be addressed here and I asked her to talk to the hospitalist. She does have some history of back pain, flank pain, foot pain, lung swelling. Numerous symptoms she has, it becomes very difficult to evaluate her. REVIEW OF SYSTEMS: Positive for hypertension for which she takes medication, but rarely. She has a history of asthma and apparently a lung carcinoma, glaucoma, degenerative joint disease, bronchitis, urinary tract infection. That was her relevant 14-point review of system. PAST MEDICAL HISTORY: Positive for what looks like contracture on both hands. FAMILY HISTORY: Unremarkable. SOCIAL HISTORY: She does not smoke, but does drink alcohol. PHYSICAL EXAMINATION: The patient's examination indicates that she is alert, responsive. Her speech, concentration, fund of knowledge and memory is at her baseline. Cranial nerve examination appears unremarkable. Hose Finisher is weak because of Dupuytren's contracture. She moves all 4 extremities. It is difficult to tell because of this contracture. She did reasonably well with position sense. Her reflexes does not appear to be hyper, I cannot tell about plantar. Cardiac examination appear unremarkable. No respiratory difficulty was noticed. Blood pressure is 133/64, respirations 18, pulse is 96, temperature is 98.2. She did have a CT angiography in the Emergency Room and it does not show any abnormality. IMPRESSION AND PLAN: Pretty unusual kind of symptoms in this patient. We will [address] [address] CONSULTATION Name: DAYSI SANTIAGO Room #: 462-P [facility] IN M.R.#: [id number] Admission: 01/21/21 Attend Phys: Chay Vizcaino MD Discharge: Date of : 39 Report #: [id number] see how she does with physical and occupational therapy and decide about the further workup. Her GFR was somewhat on the lower side and she got contrast in Emergency Room. I will suggest giving her some fluid and looks like that has already been started by the hospitalist. We will see how she does with physical therapy and I asked her to address all other questions with the hospitalist. More than 50 minutes of time was spent taking care of this patient today and majority was spent counseling this patient and coordinating her care Thank you very much for this referral. <ELECTRONICALLY SIGNED> By: Miguelito Shaffer MD 01/22/21 1222 1955 0057 Miguelito Shaffer MD /nt
--- NOTE | 2021-01-22 14:58 | 2DMMODE ---
[facility] [address] 2 D/M-MODE ECHOCARDIOGRAM Name: DAYSI SANTIAGO Room #: 462-P ADM IN M.R.#: [id number] Admission: 01/21/21 Attend Phys: Chay Vizcaino MD Discharge: Date of : 39 Report #: [id number] THIS REPORT FOR: cc: Luci Lagos MD, Karla L. MD Park, Jin S. MD ~ APPROVED REPORT Study performed: 01/22/2021 13:36:22 EXAM: Comprehensive 2D, Doppler, and color-flow Echocardiogram Patient Location: In-Patient Room #: 90 Status: routine BSA: 2.11 HR: 90 bpm BP: 133/64 mmHg Rhythm: NSR Other Information Study Quality: Adequate Indications Syncope 2D Dimensions IVSd: 13.45 (7-11mm) LVOT Diam: 18.99 (18-24mm) LVDd: 31.15 mm PWd: 11.57 (7-11mm) Ascending Ao: 28.66 (22-36mm) LVDs: 21.26 (25-40mm) Left Atrium: 29.37 (27-40mm) Aortic Root: 29.23 mm Volumes Left Atrial Volume (Systole) Single Plane 4CH: 45.68 mL Single Plane 2CH: 33.09 mL Aortic Valve AoV Peak Matt.: 1.94 m/s AO Peak Gr.: 20.41 mmHg Mitral Valve E/A Ratio: 0.8 MV Decel. Time: 316.34 ms [facility] [address] [place] [address] 2 D/M-MODE ECHOCARDIOGRAM Name: DAYSI SANTIAGO Room #: 462-P ADM IN M.R.#: [id number] Admission: 01/21/21 Attend Phys: Chay Vizcaino MD Discharge: Date of : 39 Report #: [id number] E Max Matt.: 0.90 m/s MV A Matt.: 1.19 m/s MV PHT: 91.74 ms IVRT: 73.82 ms Pulmonary Valve PV Peak Matt.: 1.40 m/s PV Peak Gr.: 7.80 mmHg Tricuspid Valve TR Peak Matt.: 1.34 m/s TR Peak Gr.: 7.23 mmHg Left Ventricle The left ventricle is normal size. There is normal LV segmental wall motion. There is normal left ventricular wall thickness. Left ventricular systolic function is hyperdynamic. LVEF is 65%. Transmitral Doppler flow pattern suggests impaired LV relaxation. Right Ventricle The right ventricle is normal size. The right ventricular systolic function is normal. Atria The left atrium size is normal. The right atrium size is normal. Aortic Valve Aortic valve is trileaflet. No aortic regurgitation is present. There is no aortic valvular stenosis. Mitral Valve The mitral valve is normal in structure. There is no mitral valve regurgitation noted. No evidence of mitral valve stenosis. Tricuspid Valve The tricuspid valve is normal in structure. Trace to mild tricuspid regurgitation. Pulmonic Valve The pulmonary valve is normal in structure. There is no pulmonic valvular regurgitation. Great Vessels The aortic root is normal in size. IVC is normal in size and collapses >50% with inspiration. [facility] [address] [place] [address] 2 D/M-MODE ECHOCARDIOGRAM Name: DAYSI SANTIAGO Room #: [address] [place] [address] IN M.R.#: [id number] Admission: 01/21/21 Attend Phys: Chay Vizcaino MD Discharge: Date of : 39 Report #: [id number] Pericardium There is no pericardial effusion. There is no pleural effusion. <Conclusion> The left ventricle is normal size. There is normal left ventricular wall thickness. Left ventricular systolic function is hyperdynamic. Transmitral Doppler flow pattern suggests impaired LV relaxation. The right ventricle is normal size. The left atrium size is normal. Aortic valve is trileaflet. There is no mitral valve regurgitation noted. Trace to mild tricuspid regurgitation. <ELECTRONICALLY SIGNED> By: Christofer Richardson MD 01/22/21 1458 1458 1458 Christofer Richardson MD /INF
[2021-01-22 15:36] VITALS: BP 137/71
--- NOTE | 2021-01-22 16:49 | NUR ---
Pt VSS, room air, INTs removed. brought clothes from home, all questions/updates answered, wheeled out in wheelchair with belongings.
== END 2021-01-22 16:59 | disposition home or self-care (01) | DRG 73 ==
LOC: ER 14:40 → EROBS 17:29 → 4W 17:47
PROVIDERS: Emergency Medicine; Nurse Practitioner; ADMIT Hospitalist; ATTEND Hospitalist
DX: G90.8 Other disorders of autonomic nervous system (principal); J18.9 Pneumonia, unspecified organism; J45.909 Unspecified asthma, uncomplicated; M16.11 Unilateral primary osteoarthritis, right hip; N18.9 Chronic kidney disease, unspecified; R53.81 Other malaise; I95.9 Hypotension, unspecified; I12.9 Hypertensive chronic kidney disease with stage 1 through stage 4 chronic kidney disease, or unspecified chronic kidney disease; M17.0 Bilateral primary osteoarthritis of knee; F41.9 Anxiety disorder, unspecified; Z20.822 Contact with and (suspected) exposure to COVID-19; Z85.118 Personal history of other malignant neoplasm of bronchus and lung; Z88.1 Allergy status to other antibiotic agents; Z79.82 Long term (current) use of aspirin; Z79.899 Other long term (current) drug therapy
CPT/HCPCS: 10045

== ENCOUNTER 2021-08-03 21:13 | Inpatient (IN) | payer OTHER ==
[~2021-08-03] VITALS: Ht 167.6 cm; Wt 108.9 kg
--- NOTE | ~2021-08-03 | EMS ---
[place] [id number] EMS Patient Care Report Name: ADYSI SANTIAGO Room #: 170-8 ADM IN M.R.#: [id number] Admission: 08/03/21 Attend Phys: Sanaz Noyola Discharge: Date of : 39 Report #: [id number] THIS REPORT FOR: //name// Report Transmitted: 08/04/2021 07:48 EMS Care Summary [place], [place]/[facility] Incident [id number] @ 08/03/2021 20:29 Incident Location [address] [place] [address] Patient DAYSI SANTIAGO Female, 81 Years 1940 Patient Address [address] [place] [address] Patient History Chronic Obstructive Pulmonary Disease (COPD),Hypertension (HTN),Glaucoma, Patient Allergies No known allergies, Patient Medications Klonopin, Hydrochlorothiazide (Hctz), Chief Complaint Transient episodes of chest pain Disposition Transported No Lights/[place] Dispatch Reason Chest Pain (Non-Traumatic) Transported To [facility] Narrative Arrived on scene with P41 to find our patient seated at the kitchen table in the home. Patient stated she had been having episodes of chest pain going on throughout the day. Patient stated the patient would occur on her left flank area, radiate into her arm, and subside after 5-10 minutes. Patient stated [place] [id number] EMS Patient Care Report Name: DAYSI SANTIAGO Room #: 170-8 ADM IN M.R.#: [id number] Admission: 08/03/21 Attend Phys: Sanaz Noyola Discharge: Date of : 39 Report #: [id number] after the pain subsided in her left side it would reoccur in her right side following a similar pattern of radiation through the arm. Patient stated when she had the pain, the arm of the affected side would be "heavy and hard to lift." Patient denied any n/v or soa with the chest pain. Patient denied any significant cardiac history. Upon arrival patient was speaking in complete sentences and denied any current pain. Vital signs, 3 lead, and 12 lead EKG obtained. Patient moved to cot. Patient transported and transferred to receiving facility without change in patient condition. Initial Vitals @20:48P: 101, @20:51P: 104, @21:02P: 111,CO: 3,SpO2: 98, @20:40P: 103,R: 16,BP: 125/69,Pain: 2/10,GCS: 15,CO: 1,SpO2: 98,Revised Trauma: 12, @21:05P: 101,R: 16,BP: 124/66,Pain: 2/10,GCS: 15,SpO2: 96,Revised Trauma: 12, Assessments @21:03MENTAL:Event Oriented,Place Oriented,Person Oriented,Time Oriented,SKIN:HEENT:Head/Face: No Abnormalities,Neck/Airway: No Abnormalities,LUNG SOUNDS:ABDOMEN:PELVIS//GI:No Abnormalities,EXTREMITIES:Left Arm: No Abnormalities,Right Arm: No Abnormalities,Left Leg: No Abnormalities,Right Leg: No Abnormalities,PULSE:NEURO:No Abnormalities, Impression Chest Pain / Discomfort Procedures @20:37 ALS Assessment Response: UnchangedSucceeded @20:51 12-Lead ECG Response: UnchangedSucceeded @20:48 12-Lead ECG Response: UnchangedFailed @20:45 3-Lead ECG Response: UnchangedSucceeded Timeline 20:27,Call Received 20:27,Dispatch Notified 20:29,Dispatched 20:30,En Route 20:36,On Scene 20:37,At Patient 20:37,ALS Assessment,Response: UnchangedSucceeded, 20:40,BP: 125/69 M,PULSE: 103,RR: 16 R,SPO2: 98 Ox,ETCO2: ,BG: ,PAIN: 2,GCS: 15, [facility] [address] [place] [address] EMS Patient Care Report Name: DAYSI SANTIAGO Room #: 170-8 ADM IN [facility]#: [id number] Admission: 08/03/21 Attend Phys: Sanaz Noyola Discharge: Date of : 39 Report #: [id number] 20:45,3-Lead ECG,Response: UnchangedSucceeded, 20:48,12-Lead ECG,Response: UnchangedFailed, 20:48,BP: / M,PULSE: 101,RR: R,SPO2: Ox,ETCO2: ,BG: ,PAIN: ,GCS: , 20:51,12-Lead ECG,Response: UnchangedSucceeded, 20:51,BP: / M,PULSE: 104,RR: R,SPO2: Ox,ETCO2: ,BG: ,PAIN: ,GCS: , 20:59,Depart Scene 21:02,BP: / M,PULSE: 111,RR: R,SPO2: 98 Ox,ETCO2: ,BG: ,PAIN: ,GCS: , 21:05,BP: 124/66 M,PULSE: 101,RR: 16 R,SPO2: 96 Ox,ETCO2: ,BG: ,PAIN: 2,GCS: 15, 21:09,At Destination 21:20,Call Closed Disclaimer v1.1 Copyright 2021 [employer] This EMS Care Summary contains data elements from the applicable legal record (which may be displayed differently). It is designed to provide pertinent information for the following purposes: continuity of care, clinical quality, and state data reporting. The complete legal record is available to ED staff and administrators of the receiving hospital in [employer]'s Patient Tracker. All data is provided "as is."
--- NOTE | ~2021-08-03 | EMS ---
[place] [address] EMS Patient Care Report Name: DAYSI SANTIAGO Room #: PRE M.R.#: [id number] Admission: Attend Phys: Discharge: Date of : 39 Report #: [id number] THIS REPORT FOR: //name// Report Transmitted: 08/03/2021 21:22 EMS Care Summary [place], [place]/[facility] Incident [id number] @ 08/03/2021 20:29 Incident Location [address] [place] [address] Patient DAYSI SANTIAGO Female, 81 Years 1940 Patient Address [address] [place] [address] Patient History Chronic Obstructive Pulmonary Disease (COPD),Hypertension (HTN),Glaucoma, Patient Allergies No known allergies, Patient Medications Klonopin, Hydrochlorothiazide (Hctz), Chief Complaint Transient episodes of chest pain Disposition Transported No Lights/[place] Dispatch Reason Chest Pain (Non-Traumatic) Transported To [facility] Narrative Arrived on scene with P41 to find our patient seated at the kitchen table in the home. Patient stated she had been having episodes of chest pain going on throughout the day. Patient stated the patient would occur on her left flank area, radiate into her arm, and subside after 5-10 [place] [address] EMS Patient Care Report Name: DAYSI SANTIAGO Room #: [facility].#: [id number] Admission: Attend Phys: Discharge: Date of : 38 Report #: [id number] after the pain subsided in her left side it would reoccur in her right side following a similar pattern of radiation through the arm. Patient stated when she had the pain, the arm of the affected side would be "heavy and hard to lift." Patient denied any n/v or soa with the chest pain. Patient denied any significant cardiac history. Upon arrival patient was speaking in complete sentences and denied any current pain. Vital signs, 3 lead, and 12 lead EKG obtained. Patient moved to cot. Patient transported and transferred to receiving facility without change in patient condition. Initial Vitals @20:48P: 101, @20:51P: 104, @21:02P: 111,CO: 3,SpO2: 98, @20:40P: 103,R: 16,BP: 125/69,Pain: 2/10,GCS: 15,CO: 1,SpO2: 98,Revised Trauma: 12, @21:05P: 101,R: 16,BP: 124/66,Pain: 2/10,GCS: 15,SpO2: 96,Revised Trauma: 12, Assessments @21:03MENTAL:Time Oriented,Person Oriented,Place Oriented,Event Oriented,SKIN:HEENT:Head/Face: No Abnormalities,Neck/Airway: No Abnormalities,LUNG SOUNDS:ABDOMEN:PELVIS//GI:No Abnormalities,EXTREMITIES:Left Arm: No Abnormalities,Right Arm: No Abnormalities,Left Leg: No Abnormalities,Right Leg: No Abnormalities,PULSE:NEURO:No Abnormalities, Impression Chest Pain / Discomfort Procedures @20:37 ALS Assessment Response: UnchangedSucceeded @20:51 12-Lead ECG Response: UnchangedSucceeded @20:48 12-Lead ECG Response: UnchangedFailed @20:45 3-Lead ECG Response: UnchangedSucceeded Timeline 20:27,Call Received 20:27,Dispatch Notified 20:29,Dispatched 20:30,En Route 20:36,On Scene 20:37,At Patient 20:37,ALS Assessment,Response: UnchangedSucceeded, 20:40,BP: 125/69 M,PULSE: 103,RR: 16 R,SPO2: 98 Ox,ETCO2: ,BG: ,PAIN: 2,GCS: 15, [address] [address] EMS Patient Care Report Name: [facility]AGO [facility] #: [facility] M.R.#: [id number] Admission: Attend Phys: Discharge: Date of : 38 Report #: [id number] 20:45,3-Lead ECG,Response: UnchangedSucceeded, 20:48,12-Lead ECG,Response: UnchangedFailed, 20:48,BP: / M,PULSE: 101,RR: R,SPO2: Ox,ETCO2: ,BG: ,PAIN: ,GCS: , 20:51,12-Lead ECG,Response: UnchangedSucceeded, 20:51,BP: / M,PULSE: 104,RR: R,SPO2: Ox,ETCO2: ,BG: ,PAIN: ,GCS: , 20:59,Depart Scene 21:02,BP: / M,PULSE: 111,RR: R,SPO2: 98 Ox,ETCO2: ,BG: ,PAIN: ,GCS: , 21:05,BP: 124/66 M,PULSE: 101,RR: 16 R,SPO2: 96 Ox,ETCO2: ,BG: ,PAIN: 2,GCS: 15, 21:09,At Destination 21:20,Call Closed Disclaimer v1.1 Copyright 2021 [employer] This EMS Care Summary contains data elements from the applicable legal record (which may be displayed differently). It is designed to provide pertinent information for the following purposes: continuity of care, clinical quality, and state data reporting. The complete legal record is available to ED staff and administrators of the receiving hospital in [employer]'s Patient Tracker. All data is provided "as is."
[2021-08-03 21:13] VITALS: BP 150/95
[2021-08-03 22:15] LABS: ABSOLUTE NEUTROPHILS 4.9 thou/uL (1.4-8.2); BASOPHILS 0.5 % (0.0-2.0); EOSINOPHILS 3.3 % (0.0-3.0); HEMATOCRIT 36.9 % (37.0-47.0); HEMOGLOBIN 11.6 gm/dL (12.0-15.0); LYMPHOCYTES 20.6 % (24.0-44.0); MCH 25.9 pg (26.0-34.0); MCHC 31.3 g/dL (28.0-37.0); MCV 82.5 fL (80.0-100.0); MONOCYTES 13.8 % (1.0-8.0); PLATELET COUNT 385 thou/uL (150-400); POLYS 61.8 % (36.0-66.0); RBC 4.47 mil/uL (4.20-5.00); RDW 16.7 % (10.5-14.5); WBC 7.9 thou/uL (4.0-11.0)
[2021-08-03 22:35] LABS: CALCIUM 9.8 mg/dL (8.5-10.1); CREATININE 1.5 mg/dL (0.6-1.0); POTASSIUM 4.5 mmol/L (3.5-5.1)
[2021-08-03 22:47] LABS: ALBUMIN 3.5 g/dL (3.4-5.0); TOTAL BILIRUBIN 0.3 mg/dL (0.2-1.0); TOTAL PROTEIN 7.8 g/dL (6.4-8.2)
[2021-08-03] MEDS ORDERED: HYDROCHLOROTH12.5 M2 PO (23:23)
[2021-08-04 05:42] LABS: CALCIUM 9.5 mg/dL (8.5-10.1); CREATININE 1.2 mg/dL (0.6-1.0); POTASSIUM 3.9 mmol/L (3.5-5.1)
[2021-08-04 07:04] LABS: URINE BILIRUBIN NEGATIVE (Negative); URINE BLOOD NEGATIVE (Negative); URINE CLARITY CLEAR; URINE COLOR YELLOW; URINE GLUCOSE-RANDOM* TRACE (Negative); URINE KETONES NEGATIVE (Negative); URINE NITRITE-REFLEX NEGATIVE (Negative); URINE PROTEIN (DIPSTICK) NEGATIVE (Negative); URINE UROBILINOGEN 0.2 E.U./dl (0.2-1.0)
[2021-08-04 07:05] LABS: URINE LEUKOCYTES-REFLEX 3+ (Negative)
--- NOTE | 2021-08-04 07:09 | EKG ---
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 : 1940 Requested By: Tremayne Tran Order Number: [id number] MD: Lexx Pagan Measurements Intervals [place] Rate: 101 P: 47 SD: 167 QRS: -3 QRSD: 84 T: 47 QT: 359 QTc: 466 Interpretive Statements Sinus tachycardia Atrial premature complex Probable left atrial enlargement Compared to ECG 01/21/2021 14:54:39 Atrial premature complex(es) now present Sinus rhythm no longer present Electronically Signed On 08-04-2021 7:09:45 ELECTRIC WELDER by Lexx Paagn [email or web address] <ELECTRONICALLY SIGNED> By: Lexx Pagan MD, [facility] 08/04/21708 19 19 Lexx Pagan MD, [facility] /EPI
[2021-08-04 07:19] LABS: BACTERIA-REFLEX >30 Many /HPF (None Seen); CASTS None Seen /LPF (None Seen); CRYSTALS None Seen /LPF (None Seen); MUCUS None Seen strn/LPF (None Seen); SQUAMOUS None Seen /LPF (0-3); URINE RBC 3-10 Few /HPF (NONE SEEN); URINE WBC-REFLEX >25 Many /HPF (0-5)
[2021-08-04 19:44] VITALS: BP 110/53
[2021-08-04 20:26] VITALS: BP 110/53
[2021-08-04 20:45] VITALS: BP 147/101
== END 2021-08-05 | disposition home or self-care (01) | DRG 286 ==
LOC: ER 21:13 → EROBS 23:06 → 3W 08-04 20:27
PROVIDERS: Emergency Medicine; Nurse Practitioner Family; ADMIT Hospitalist; ATTEND Hospitalist
PROC: B2111ZZ Fluoroscopy of Multiple Coronary Arteries using Low Osmolar Contrast (ICD-10-PCS; principal; 2021-08-05)
PROC: 4A023N7 Measurement of Cardiac Sampling and Pressure, Left Heart, Percutaneous Approach (ICD-10-PCS; principal; 2021-08-05)
DX: I25.10 Atherosclerotic heart disease of native coronary artery without angina pectoris (principal); N17.0 Acute kidney failure with tubular necrosis; J45.909 Unspecified asthma, uncomplicated; I10 Essential (primary) hypertension; M16.11 Unilateral primary osteoarthritis, right hip; M54.9 Dorsalgia, unspecified; G89.29 Other chronic pain; Z60.2 Problems related to living alone; E78.5 Hyperlipidemia, unspecified; Z20.822 Contact with and (suspected) exposure to COVID-19; Z88.1 Allergy status to other antibiotic agents; Z87.891 Personal history of nicotine dependence; Z82.49 Family history of ischemic heart disease and other diseases of the circulatory system; Z79.82 Long term (current) use of aspirin; Z79.899 Other long term (current) drug therapy
CPT/HCPCS: 10879